=== PATIENT | female | born 2000 | race African-American/Black ===

== ENCOUNTER 2020-08-14 12:52 | Outpatient (CLI) | payer MEDICAID ==
[2020-08-14 13:25] LABS: AMPHETAMINE SCREEN, URINE Negative (Negative); BARBITURATE SCREEN, URINE Negative (Negative); BENZODIAZEPINE SCREEN, URINE Negative (Negative); CANNABINOID SCREEN, URINE Positive (Negative); COCAINE SCREEN, URINE Negative (Negative); METHADONE SCREEN, URINE Negative (Negative); OPIATE SCREEN, URINE Negative (Negative)
[2020-08-14 13:27] LABS: MICROSCOPIC INDICATED
== END 2020-08-14 13:35 | disposition home or self-care (01) ==
LOC: LDOP 12:52 → EDBD 12:52 → LDOP 13:35
PROVIDERS: ATTEND Obstetrics & Gynecology
DX: O26.899 Other specified pregnancy related conditions, unspecified trimester (principal); Z3A.00 Weeks of gestation of pregnancy not specified
CPT/HCPCS: 59025; 80307; 81001; 87086

== ENCOUNTER 2020-10-21 20:20 | Inpatient (IN) | payer MEDICAID, OTHER ==
[~2020-10-21] VITALS: Ht 165.1 cm; Wt 72.7 kg
[2020-10-21] MEDS: PENICILLIN GK 2,500,000 UNITS in DEXTROSE 5% 100 ML IVPB SCH ×6 (02:00→22:00)
[2020-10-21] MEDS ORDERED: ONDANSETRON 2MG/ML, 2ML IVPush PRN (21:00)
[2020-10-21] MEDS ORDERED: ALUMINUM/MAG/SIMETHICONE 30 ML UDC PO PRN (21:00)
[2020-10-21] MEDS ORDERED: TERBUTALINE 1 MG/ML, 1ML SQ PRN (21:00)
[2020-10-21] MEDS ORDERED: PENICILLIN GK 5,000,000 UNITS in DEXTROSE 5% 100 ML IVPB ONE (21:00)
[2020-10-21] MEDS ORDERED: OXYTOCIN 30U/ 0.9% NaCL 500ML 500 ML IV ONE (21:00)
[2020-10-21] MEDS ORDERED: D5%-LACTATED RINGERS 1,000 ML IV SCH (21:00)
[2020-10-21] MEDS ORDERED: TERBUTALINE 1 MG/ML, 1ML IVPush PRN (21:00)
[2020-10-21] MEDS ORDERED: METOCLOPRAMIDE 5 MG/ML, 2ML IVPush PRN (21:00)
[2020-10-21] MEDS ORDERED: FENTANYL PF 100 MCG/2ML IV PRN (21:00)
[2020-10-21] MEDS ORDERED: LACTATED RINGERS 1,000 ML IV SCH (21:00)
[2020-10-21] MEDS ORDERED: FENTANYL PF 100 MCG/2ML IVPush PRN (21:00)
[2020-10-21] MEDS ORDERED: OXYTOCIN 30U/ 0.9% NaCL 500ML 500 ML IV PRN (21:00)
[2020-10-21] MEDS ORDERED: MISOPROSTOL 200 MCG TABLET ONE (21:07)
[2020-10-21] MEDS ORDERED: OXYTOCIN 30U/ 0.9% NaCL 500ML 500 ML ONE (21:07)
[2020-10-21] MEDS ORDERED: NEWBORN KIT ONE (21:07)
[2020-10-21] MEDS ORDERED: LIDOCAINE 1%, 20ML ONE (21:07)
[2020-10-21 21:28] LABS: MEAN CORPUSCULAR HEMOGLOBIN 26.4 pg (27.0-34.8); MEAN CORPUSCULAR HGB CONC 32.8 g/dL (32.4-35.8); MEAN PLATELET VOLUME 8.8 fL (7.4-10.4); PLATELET COUNT 334 x10^3/uL (130-400); RED BLOOD COUNT 4.58 x10^6/uL (3.82-5.3); RED CELL DISTRIBUTION WIDTH 15.3 % (9.6-15.2)
[2020-10-21] MEDS ORDERED: PLEASE ENTER HEIGHT AND WEIGHT MC SCH (21:30)
[2020-10-21 21:45] LABS: AMPHETAMINE SCREEN, URINE Negative (Negative); BARBITURATE SCREEN, URINE Negative (Negative); BENZODIAZEPINE SCREEN, URINE Negative (Negative); CANNABINOID SCREEN, URINE Positive (Negative); COCAINE SCREEN, URINE Negative (Negative); METHADONE SCREEN, URINE Negative (Negative); MICROSCOPIC INDICATED; OPIATE SCREEN, URINE Negative (Negative)
[2020-10-21 21:46] LABS: MD YES
[2020-10-21 21:48] LABS: BAND#(MANUAL) 0.54 x10^3/uL; BANDS%(MANUAL) 3 % (0-7); LYMPH#(MANUAL) 1.97 x10^3/uL (1-6.1); LYMPHS% (MANUAL) 11 % (22-44); MONOS#(MANUAL) 1.43 x10^3/uL (0.3-2.7); MONOS% (MANUAL) 8 % (2-9); MYELOCYTES# (MANUAL) 0.18 x10^3/uL (0-0); MYELOCYTES% (MANUAL) 1 % (0-0); SEG#(MANUAL) 13.78 x10^3/uL (1.8-8); SEGS% (MANUAL) 77 % (42-75)
[2020-10-21 21:50] LABS: ANISOCYTOSIS 1+
[2020-10-21 21:51] LABS: <PLATELET ESTIMATE> ADEQUATE; <PLT MORPHOLOGY> NORMAL PLT MORPH
[2020-10-21] MEDS ORDERED: HYDROcodone/APAP 5/325 TABLET ONE (23:10)
[2020-10-21] MEDS ORDERED: IBUPROFEN 600 MG TABLET ONE (23:10)
[2020-10-21] MEDS: IBUPROFEN 600 MG TABLET PO PRN (23:11)
[2020-10-21] MEDS ORDERED: ONDANSETRON 2MG/ML, 2ML IV PRN (23:30)
[2020-10-21] MEDS ORDERED: HYDROcodone/APAP 5/325 TABLET PO PRN ×2 (23:30)
[2020-10-21] MEDS ORDERED: SIMETHICONE 80 MG CHEW TAB PO PRN (23:30)
[2020-10-21] MEDS ORDERED: OXYTOCIN 10 UNITS/ML, 1ML IM PRN (23:30)
[2020-10-21] MEDS ORDERED: METHYLERGONOVINE 0.2 MG/ML IM PRN (23:30)
[2020-10-21] MEDS ORDERED: MISOPROSTOL 200 MCG TABLET PO PRN (23:30)
[2020-10-21] MEDS ORDERED: GLYCERIN ADULT SUPP PR PRN (23:30)
[2020-10-21] MEDS ORDERED: BISACODYL 10 MG SUPP PR PRN (23:30)
[2020-10-21] MEDS: OXYTOCIN 30U/ 0.9% NaCL 500ML 500 ML IV SCH (23:30)
[2020-10-22 00:45] VITALS: BP 98/63
[2020-10-22] MEDS: PENICILLIN GK 2,500,000 UNITS in DEXTROSE 5% 100 ML IVPB SCH (02:00)
[2020-10-22 06:18] LABS: BASOPHILS % (AUTO) 0 % (0-1); EOSINOPHILS % (AUTO) 0 % (1-7); LYMPHOCYTES % (AUTO) 12 % (22-44); MEAN CORPUSCULAR HGB CONC 32.7 g/dL (32.4-35.8); MEAN PLATELET VOLUME 8.7 fL (7.4-10.4); MONOCYTES % (AUTO) 6 % (2-9); NEUTROPHILS % (AUTO) 82 % (42-75); PLATELET COUNT 293 x10^3/uL (130-400); RED CELL DISTRIBUTION WIDTH 14.9 % (9.6-15.2)
[2020-10-22] MEDS: IBUPROFEN 600 MG TABLET PO PRN ×3 (06:25→17:59)
[2020-10-22 06:50] VITALS: BP 114/73
[2020-10-22 06:50] LABS: MD SCAN
[2020-10-22] MEDS: DOCUSATE 100 MG CAPSULE PO PRN (09:02)
[2020-10-22] MEDS: PRENATAL VIT/IRON/FA 1 EACH TABLET PO SCH (09:02)
[2020-10-22 12:00] VITALS: BP 113/73
[2020-10-22 16:00] VITALS: BP 112/72
[2020-10-22] MEDS: OXYTOCIN 30U/ 0.9% NaCL 500ML 500 ML IV SCH ×2 (19:25→21:25)
[2020-10-22 19:40] VITALS: BP 115/78
[2020-10-23] MEDS: OXYTOCIN 30U/ 0.9% NaCL 500ML 500 ML IV SCH (05:30)
[2020-10-23 07:50] VITALS: BP 118/83
[2020-10-23] MEDS: IBUPROFEN 600 MG TABLET PO PRN ×2 (08:03→14:27)
[2020-10-23] MEDS: DOCUSATE 100 MG CAPSULE PO PRN (08:03)
[2020-10-23] MEDS: PRENATAL VIT/IRON/FA 1 EACH TABLET PO SCH (08:03)
== END 2020-10-23 16:39 | disposition home or self-care (01) | DRG 807 ==
LOC: LDOP 20:20 → LDIP 20:49 → 2NW 10-22 00:35
PROVIDERS: ADMIT Obstetrics & Gynecology; ATTEND Obstetrics & Gynecology
PROC: 10E0XZZ Delivery of Products of Conception, External Approach (ICD-10-PCS; principal; 2020-10-21)
PROC: 0KQM0ZZ Repair Perineum Muscle, Open Approach (ICD-10-PCS; 2020-10-21)
DX: O99.324 Drug use complicating childbirth (principal); Z37.0 Single live birth; O77.0 Labor and delivery complicated by meconium in amniotic fluid; F12.90 Cannabis use, unspecified, uncomplicated; O70.1 Second degree perineal laceration during delivery; Z83.3 Family history of diabetes mellitus; Z20.822 Contact with and (suspected) exposure to COVID-19; Z3A.00 Weeks of gestation of pregnancy not specified
CPT/HCPCS: 36415; 76815; 80307; 81001; 85025; 86592; 86762; 86850; 86900; 87086; 87340; 87635; 87806; 89060; G0378; G0475; Q0114

== ENCOUNTER 2020-10-27 13:49 | Emergency (ER) | payer MEDICAID, OTHER ==
[~2020-10-27] VITALS: Ht 165.1 cm; Wt 77.5 kg
--- NOTE | 2020-10-27 14:46 | NUR ---
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
--- NOTE | 2020-10-27 15:21 | NUR ---
CC OF LLQ AND RLQ ABD PAIN THAT RADIATES TO BACK PAIN, 11/15. PT STATES SHE DELIVERED A BABY LAST THURSDAY AND AFTER BEING DC'D HOME SHE HEARD A POP WHERE SHE HAD STITCHES PLACED FROM TEARING AND HAS SINCE BEEN BLEEDING. PT STATES SHE GOES THROUGH 5 PADS A DAY. PT STATES THIS IS KEEPING HER FROM WALKING.
[2020-10-27 16:49] VITALS: BP 122/60
== END 2020-10-27 16:52 | disposition home or self-care (01) ==
LOC: ED 15:22
DX: O90.1 Disruption of perineal obstetric wound (principal)
CPT/HCPCS: 99282

== ENCOUNTER 2020-11-09 20:36 | Emergency (ER) | payer MEDICAID ==
[~2020-11-09] VITALS: Ht 165.1 cm; Wt 84.0 kg
[2020-11-09 20:49] VITALS: BP 138/73
--- NOTE | 2020-11-09 21:53 | NUR ---
AJIT CALLING FROM HOME REGARDING PT "WAITING FOREVER" AJIT UPDATED ON TIME PT HAS BEEN IN LOBBY. DUSTINIENFrancine BEGINS TO STATES THAT WE NEED TO GET HER BACK IMMEDIATELY AND THIS IS NOT THE WAY TO RUN A HOSPITAL. AJIT PROCEEDS TO SAY VULGUR COMMENTS TO THIS RN AND CALL IS DISCONNECTED.
--- NOTE | 2020-11-09 23:10 | NUR ---
PT AMBULATORY WITH STEADY GAIT FROM LOBBY TO ROOM 23
== END 2020-11-10 00:14 | disposition home or self-care (01) ==
LOC: ED 21:06
DX: T81.30XA Disruption of wound, unspecified, initial encounter (principal); F17.200 Nicotine dependence, unspecified, uncomplicated
CPT/HCPCS: 99281